=== PATIENT | female | born 1965 | race African-American/Black ===

== ENCOUNTER 2019-07-31 06:18 | Emergency (ER) | payer SELFPAY ==
[2019-07-31 06:20] VITALS: BP 146/71; PULSE 70; RESP 18; TEMP 36.6; O2SAT 98
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
--- NOTE | 2019-07-31 06:29 | PC.NURSE ---
Physician removed c-collor from patient.
[2019-07-31] MEDS: KETOROLAC (*BKC) 60 MG/2 ML VIAL IM (06:33)
[2019-07-31] MEDS: CYCLOBENZAPRINE HCL 10 MG TABLET PO (06:34)
[2019-07-31 07:23] VITALS: BP 119/78; PULSE 57; RESP 18; O2SAT 100
== END 2019-07-31 07:50 | disposition home or self-care (01) ==
PROVIDERS: Emergency Provider Emergency Medicine
DX: S16.1XXA Strain of muscle, fascia and tendon at neck level, initial encounter (principal); V40.5XXA Car driver injured in collision with pedestrian or animal in traffic accident, initial encounter
CPT/HCPCS: 96372; 99283; A9270; J1885; L0140